=== PATIENT | female | born 1975 | race Two or more races ===

== ENCOUNTER 2017-03-18 10:55 | Emergency (ER) | payer MEDICAID ==
[~2017-03-18] VITALS: Ht 162.6 cm; Wt 76.2 kg
[~2017-03-18 10:55] MED LIST: ACETTAB85; [UNRECOGNIZED DRUG - CODE]; protonix
[2017-03-18 13:09] VITALS: BP 97/54
== END 2017-03-18 13:09 | disposition home or self-care (01) ==
LOC: ER 10:55
DX: J20.9 Acute bronchitis, unspecified (principal); I95.9 Hypotension, unspecified; E07.9 Disorder of thyroid, unspecified; Z88.5 Allergy status to narcotic agent
CPT/HCPCS: 71020

== ENCOUNTER 2017-11-02 05:02 | Emergency (ER) | payer MEDICAID ==
[~2017-11-02] VITALS: Ht 157.5 cm; Wt 72.6 kg
[2017-11-02 07:17] LABS: Basophils # (auto) 0 uL; Basophils % (auto) 0.5 % (0.0-2.0); Eosinophils # (auto) 0.1 uL; Eosinophils % (auto) 1.7 % (0.0-7.0); Hemoglobin 12.3 g/dL (12.2-16.2); Lymphocytes # (auto) 2.3 uL; Lymphocytes % (auto) 34.3 % (10.0-50.0); Mean Corpuscular Hemoglobin 28.3 pg (28.0-32.0); Mean Corpuscular Hgb Conc. 32.5 g/dL (32.0-36.0); Mean Corpuscular Volume 87.1 fL (80.0-100.0); Monocytes # (auto) 0.6 uL; Monocytes % (auto) 8.3 % (0.0-12.0); Neutrophils # (auto) 3.7 uL; Neutrophils % (auto) 55.2 % (37.0-80.0); Nucleated Red Blood Cells % 0.1 %; Platelet Count (auto) 436 10^3/uL (140-450); Red Blood Cells 4.36 10^6/uL (4.0-5.20); Red Cell Distribution Width 15.9 % (11.8-14.3); White Blood Cell 6.7 10^3/uL (4.4-10.8)
[2017-11-02 07:42] LABS: Albumin 3.7 g/dL (3.4-5.0); BUN/Creatinine Ratio 19.7; Bilirubin, Total 0.4 mg/dL (0.2-1.0); Calcium 8.5 mg/dL (8.5-10.1); Potassium 3.8 mmol/L (3.5-5.1); Total Protein 8.1 g/dL (6.4-8.2)
[2017-11-02 09:21] VITALS: BP 107/45
== END 2017-11-02 10:04 | disposition home or self-care (01) ==
LOC: ER 05:04
DX: G89.29 Other chronic pain (principal); R10.33 Periumbilical pain; K59.00 Constipation, unspecified; I95.9 Hypotension, unspecified
CPT/HCPCS: 36415; 74176; 80053; 82150; 83690; 85025